=== PATIENT | female | born 1960 | race Caucasian/White ===

== ENCOUNTER 2016-10-27 18:56 | Emergency (ER) | payer BC ==
[~2016-10-27] VITALS: Ht 157.5 cm; Wt 65.8 kg
[~2016-10-27 18:56] MED LIST: AUGMENTIN 875875 MG PO; NORCO 5-325 TA1 EACH PO; SIMVASTATIN10 MG PO; ULTRAM 50MG TAB50 MG PO
[2016-10-27] MEDS ORDERED: MOBIC15 MG PO (21:04)
[2016-10-27 21:20] VITALS: BP 135/79
== END 2016-10-27 21:20 | disposition home or self-care (01) ==
LOC: ER 18:56
DX: M72.2 Plantar fascial fibromatosis (principal); E11.9 Type 2 diabetes mellitus without complications; E78.00 Pure hypercholesterolemia, unspecified; F10.99 Alcohol use, unspecified with unspecified alcohol-induced disorder

== ENCOUNTER → 2017-03-30 | Outpatient (CLI) | payer BC ==
[~2017-03-30] MED LIST changes: +MOBIC15 MG PO
== END ==
LOC: RAD 11:08
DX: Z12.31 Encounter for screening mammogram for malignant neoplasm of breast (principal)

== ENCOUNTER → 2018-04-29 | Outpatient (CLI) | payer BC | LOC: RAD 01:59 | DX: Z12.31 Encounter for screening mammogram for malignant neoplasm of breast (principal) ==

== ENCOUNTER → 2019-06-03 | Outpatient (CLI) | payer BC | LOC: RAD 10:05 | DX: Z12.31 Encounter for screening mammogram for malignant neoplasm of breast (principal) ==

== ENCOUNTER → 2020-07-02 | Outpatient (CLI) | payer BC | LOC: BC 08:33 | PROVIDERS: ATTEND Family Medicine | DX: Z12.31 Encounter for screening mammogram for malignant neoplasm of breast (principal) ==